=== PATIENT | male | born 1965 | race Caucasian/White ===

== ENCOUNTER 2017-06-12 21:42 | Emergency (ER) | payer OTHER ==
[~2017-06-12] VITALS: Ht 177.8 cm; Wt 102.1 kg
--- NOTE | 2017-06-12 22:14 | ER.PDOC ---
General Chief Complaint: Skin Rash/Abscess Stated Complaint: BLOOD CLOT TRAVEL OUT OF US: No Time seen by MD: 22:11 Source: patient Exam Limitations: no limitations History of Present Illness Initial Comments rash on R foot Timing/Duration: unsure Severity: mild Associated Symptoms: denies symptoms Allergies: Coded Allergies: No Known Allergies (Unverified , 06/12/17) Past Medical History Surgical History: cholecystectomy Family History Significant Family History: no pertinent family hx Social History Smoking: greater than 1 pack/day Alcohol Use: none Drug Use: none Review of Systems Constitutional: denies fever Skin: rash Psychiatric/Neurological: anxiety All Other Systems: Reviewed and Negative Physical Exam General Appearance: No Apparent Distress EENT: eyes nml inspection, nml ENT inspection Neck: Full Range of Motion Respiratory: chest non-tender, lungs clear CVS: reg rate & rhythm, no murmur Skin: Rash Progress Progress keflex bacrtoban Departure Time of Disposition: 22:12 Disposition: 01 HOME, SELF-CARE Impression: Primary Impression: Cellulitis Referrals: PCP,UNKNOWN (PCP) PRIMARY CARE PROVIDER Additional Instructions: keflex bactroban JOHN HAYDEN Dr., MD Jun 12, 2017 22:14
== END 2017-06-12 22:40 | disposition home or self-care (01) ==
LOC: ER 21:42
DX: L03.115 Cellulitis of right lower limb (principal); Z90.49 Acquired absence of other specified parts of digestive tract; F17.200 Nicotine dependence, unspecified, uncomplicated
CPT/HCPCS: 99283; 99285